=== PATIENT | female | born 1985 | race Caucasian/White ===

== ENCOUNTER 2018-09-26 09:49 | Emergency (ER) | payer MEDICAID, SELFPAY ==
[2018-09-26 09:50] VITALS: BP 139/83; PULSE 93; RESP 18; TEMP 36.6; O2SAT 98; BMI 39.9
--- NOTE | 2018-09-26 10:03 | ED.VIS.GEN ---
History of Present Illness Informant: Patient Onset: Days - 3 days Context: Gradual Onset Timing: Continuous Quality: sharp/throbbing Location: left side of head Current Severity: Severe Maximum Severity: Severe Worsened by: nothing Relieved by: nothing Associated Symptoms: nausea, vomiting, photophobia Narrative: 32-year-old female with a history of migraine headaches presents to the emergency department with a migraine headache. It began approximately 3 days ago. She is been using Excedrin, as well as ibuprofen without relief. It has gradually gotten worse. It is sharp and on the left side of her head. It is consistent in nature with her previous migraine headaches. She has not had any head trauma. She has no fevers chills or neck pain. She has not been lightheaded or dizzy. No rash. No upper respiratory symptoms. She has not had any visual changes or difficulties with speech or ambulation. No numbness or tingling or weakness. Denies any other review of systems at this time. Prior similar symptoms: Yes Recent Illness/Hospitalization: No <Yovany Keen - Last Filed: 09/26/18 11:22> <Jelly Pichardo - Last Filed: 09/26/18 14:19> Chief Complaint: Headache Past Medical History Prior records reviewed: Yes Surgical History: - - Lives: With Family Smoking Status: Never smoker <Yovany Keen - Last Filed: 09/26/18 11:22> <Jelly Pichardo - Last Filed: 09/26/18 14:19> - Allergies and Home Meds Allergies/Adverse Reactions: Allergies No Known Allergies Allergy (Verified 09/26/18 09:53) Primary Care Physician: Raya Welch NP-C [Primary Care Provider] - Review of Systems All systems negative except as indicated General: Denies: Chills, Fever Gastrointestinal: Reports: Nausea, Vomiting Musculoskeletal: Denies: Neck pain Neurological: Reports: Headache <Yovany Keen - Last Filed: 09/26/18 11:22> Physical Exam Vital Signs/Narrative: Vital Signs Temp Pulse Resp BP Pulse Ox 09/26/18 09:50 97.9 F 93 18 139/83 H 98 Inital Vital Signs reviewed: Yes General: Well nourished, Well developed, No Acute Distress Head: Normocephalic, Atraumatic Eyes: Perrl, EOMI ENT: Moist mucous membranes, TM's clear. Negative for: No rhinorrhea, Dry mucous membranes, Nasal congestion, Sinus tenderness Neck: Supple, Nontender, No lymphadenopathy - No signs of meningismus Cardiovascular: Regular rate, Regular rhythm, No murmurs Respiratory: No distress, CTA bilaterally, Chest nontender Abdomen: Soft, Nontender, Nondistended, Normal bowel sounds, No masses Back: Nontender Extremities: Nontender, No edema Skin: Normal color, No rash Neurological: Alert, Oriented x3, Cranial nerves II-XII grossly intact, Normal Strength, Normal Sensation, Normal Gait <Yovany Keen - Last Filed: 09/26/18 11:22> Vital Signs/Narrative: Vital Signs Pulse Resp BP 09/26/18 11:41 80 16 133/90 H 09/26/18 10:19 16 <Jelly Pichardo - Last Filed: 09/26/18 14:19> Diagnostic/Tx/Re-eval - Medical Decision Making Patient presents with 1 of her usual migraine headaches. She has been dealing with these headaches for approximately 6 years. She has never had imaging of her brain but she was comfortable with her plan of treating her migraine with a migraine cocktail. She had significant improvement after this. On repeat evaluation she states that she feels ready to be discharged. We again discussed possibility of obtaining imaging of her brain because she is never had this but she is comfortable following up with her doctor as an outpatient for further work-up and management of her migraines. She was discharged home with return precautions. <Yovany Keen - Last Filed: 09/26/18 11:22> - Medical Decision Making Dr. Pichardo dictating the patient has her typical migraine headache for years really not different anyway no history of brain tumor and aneurysm she is not as she can recall had a formal work-up for the headache on exam she is in no distress head neck chest abdomen neurologic exam normal this time treatment plan therapy follow-up with her doctors for further management evaluation and brain imaging as clinically warranted <Jelly Pichardo - Last Filed: 09/26/18 14:19> ED Disposition <Yovany Keen - Last Filed: 09/26/18 11:22> <Jelly Pichardo - Last Filed: 07/14/19 14:19> - Plan for ED Patient: Disposition: Home or Assisted Living Diagnosis: Migraine Instructions: HEADACHE, Migraine (Classical) Referrals: Raya Welch NP-C [Primary Care Provider] -
[2018-09-26 10:19] VITALS: RESP 16
[2018-09-26] MEDS: 0.9% Normal Saline 1,000 ML 1000 ML IV (10:21)
[2018-09-26] MEDS: Metoclopramide 10 MG/2 ML Vial IV (10:21)
[2018-09-26] MEDS: Ketorolac 15 MG/ML Vial IV (10:21)
[2018-09-26] MEDS: DiphenhydrAMINE 50 MG/ML Syringe 25 MG IV (10:21)
[2018-09-26 10:45] LABS: Internal QC Validated? YES +Cl - CLEAR BKGD; Pregnancy, Urine Negative Negative
[2018-09-26 11:41] VITALS: BP 133/90; PULSE 80; RESP 16
== END 2018-09-26 11:43 | disposition home or self-care (01) ==
PROVIDERS: Emergency Provider Physician Assistant Medical; Family Provider Nurse Practitioner Family; PCP Nurse Practitioner Family
DX: G43.909 Migraine, unspecified, not intractable, without status migrainosus (principal)
CPT/HCPCS: 81025; 96361; 96374; 96375; 99283; J7030; A4216

== ENCOUNTER 2019-04-24 20:06 | Emergency (ER) | payer MEDICAID, SELFPAY ==
[2019-04-24 20:07] VITALS: BP 140/90; PULSE 106; RESP 16; TEMP 36.9; O2SAT 99; BMI 40.7
--- NOTE | 2019-04-24 20:32 | ED.DCSUM_ITS ---
History of Present Illness Chief Complaint: Headache Informant: Patient Onset: Days Context: Gradual Timing: Continuous Quality: Throbbing Associated Symptoms: Nausea, Photophobia. Negative for: Fever, Vomiting, Sinus Pressure, Visual Changes, Blurred Vision Narrative: Patient is a 33-year-old female with history of headaches presenting with a headache. Patient states she developed symptoms 4 days ago. Normally her headaches will resolve with [id number] treatments including Excedrin, Tylenol and ibuprofen but it did not this time. She is actually feeling better today than she went outside and looked at the bright sun in the snow and it bothered her headache again. The headache seems to be mostly behind her right eye and behind her right scalp. She says feels like her prior his migraine headaches. She has associated nausea no vomiting. No associated fever. Patient does not know her last menstrual period is because she has an IUD. She denies concern for . She denies any falls, trauma or head injury. Patient has gone to the ER and received migraine cocktails in the past which have helped. She is requesting one again. Patient is never had imaging of her head. This is offered but patient states she is indifferent to getting imaging and would prefer to follow-up with her primary care doctor for further evaluation. Past Medical History - Allergies and Home Meds Allergies/Adverse Reactions: Allergies No Known Allergies Allergy (Verified 04/24/19 20:07) Primary Care Physician: Raya Welch NP-C [Primary Care Provider] - Past Medical History: - - Headaches Surgical History: - - Lives: With Family Smoking Status: Never smoker Alcohol: None Drugs: None Review of Systems General: Denies: Chills, Fever, Sweats Eyes: Reports: - - photophobia . Denies: Visual changes - bilaterally, Diplopia ENT: Denies: Rhinorrhea, Sore throat Cardiovascular: Denies: Chest pain, Palpitations Respiratory: Denies: Dyspnea, Cough, Dyspnea on exertion Gastrointestinal: Reports: Nausea. Denies: Abdominal pain, Vomiting, Diarrhea, Melena, Hematochezia Genitourinary: Denies: Dysuria, Hematuria, Frequency Musculoskeletal: Denies: Back pain, Extremity Pain Skin: Denies: Rash, Wounds Neurological: Reports: Headache. Denies: Weakness, Numbness Physical Exam Vital Signs/Narrative: Vital Signs Temp Pulse Resp BP Pulse Ox 04/24/19 20:07 98.4 F 106 H 16 140/90 H 99 Inital Vital Signs reviewed: Yes General: Well nourished, Well developed Head: NC, AT Eyes: Perrl, EOMI ENT: Moist mucous membranes, No rhinorrhea, TM's clear Neck: Supple, No Lymphadenopathy, No JVD, Nontender, No Meningismus Cardiovascular: Regular rate, Regular rhythm, No murmurs Respiratory: No distress, CTA bilaterally, Chest nontender Abdomen: Soft, Nontender, Nondistended, Normal bowel sounds Back: Nontender, Normal Inspection Extremities: Nontender, No edema Skin: Normal color, No rash Neuro: Alert, Oriented x3, Cranial nerves II-XII grossly intact, Normal Strength, Normal Sensation, Normal DTR, Normal Gait Psychological: Normal affect Diagnostic/Tx/Re-eval - Medical Decision Making Patient evaluated for migraine headache. She appears nontoxic in no acute di stress. Her vital signs are normal except for very mild tachycardia. She has normal neurologic exam. She does not have any meningeal signs. I do not suspect subarachnoid hemorrhage. I do not think an LP is indicated at this time. Patient is offered a head CT as she is never had imaging to evaluate her headaches but declines. She is instructed to follow-up with her PCP for further evaluation of her headaches. Patient is given a migraine cocktail and has significant improvement of her symptoms. She be discharged home. Patient is counseled on signs and symptoms requiring return to the emergency room. Patient verbalizes agreement and understand this plan. Patient discharged home in stable and improved condition. ED Disposition - Plan for ED Patient: Disposition: Home or Assisted Living Diagnosis: Headache Instructions: ED, Migraine (Classical) Referrals: Raay Welch NP-C [Primary Care Provider] - Additional Instructions: Follow-up with your primary care doctor for further evaluation of your headaches especially if they become more severe or occur more frequently. Return the emergency room with any worsening symptoms. Alternate Tylenol and ibuprofen at home as needed for your headache.
[2019-04-24] MEDS: 0.9% Normal Saline 1,000 ML 999 ML IV (20:39)
[2019-04-24] MEDS: Ketorolac 15 MG/ML Vial IV (20:39)
[2019-04-24] MEDS: DiphenhydrAMINE 50 MG/ML Syringe 25 MG IV (20:39)
[2019-04-24] MEDS: proCHLORPERazine 10 MG/2 ML Vial IV (20:40)
[2019-04-24 22:23] VITALS: BP 138/82; PULSE 89; RESP 16; O2SAT 97
[2019-04-24 22:39] VITALS: BP 138/82; PULSE 89; RESP 16; O2SAT 97
== END 2019-04-24 22:40 | disposition home or self-care (01) ==
PROVIDERS: Emergency Provider Emergency Medicine; PCP Nurse Practitioner Family
DX: R51 Headache (principal); R11.0 Nausea; R00.0 Tachycardia, unspecified; H53.149 Visual discomfort, unspecified; Z97.5 Presence of (intrauterine) contraceptive device
CPT/HCPCS: 96361; 96374; 96375; 99283; J7030; A4216

== ENCOUNTER → 2022-07-31 | Outpatient (CLI) | payer MEDICAID, SELFPAY | END | disposition home or self-care (01) | LOC: SL 20:07 | PROVIDERS: PCP Internal Medicine; Referring Provider Internal Medicine; Visit Provider Internal Medicine | DX: G47.33 Obstructive sleep apnea (adult) (pediatric) (principal) | CPT/HCPCS: 95811 ==